=== PATIENT | male | born 1950 | race Caucasian/White ===

== ENCOUNTER 2022-01-04 20:40 | Emergency (ER) | payer BC, MEDICARE ==
[~2022-01-04 20:40] MED LIST: CRESTOR10 MG PO; ECOTRIN81 MG PO; METOPROLOL TART25 MG PO; NITROSTAT0.4 MG SL; NORCO 5-325 TA1 EACH PO; VITAMIN D31000 UNIT PO; ZANTAC 150 MG150 MG PO
[2022-01-04] MEDS ORDERED: CEPHALEXIN500 M1 PO (22:42)
== END 2022-01-04 22:59 | disposition home or self-care (01) ==
LOC: ER1 20:40
DX: S61.215A Laceration without foreign body of left ring finger without damage to nail, initial encounter (principal); S61.207A Unspecified open wound of left little finger without damage to nail, initial encounter; I10 Essential (primary) hypertension; Z23 Encounter for immunization; W23.1XXA Caught, crushed, jammed, or pinched between stationary objects, initial encounter
CPT/HCPCS: 12001; 73130; 90471; 90714; 99283